=== PATIENT | female | born 1940 ===

== ENCOUNTER 2020-06-16 05:45 | Day surgery (SDC) | payer OTHER ==
[2020-06-16] MEDS ORDERED: AMOX1TAB5 PO (09:19)
== END 2020-06-16 10:25 | disposition home or self-care (01) ==
LOC: AMB-ENDOS 05:45
PROVIDERS: ATTEND Surgery
DX: K57.32 Diverticulitis of large intestine without perforation or abscess without bleeding (principal); K64.8 Other hemorrhoids; Z20.828 Contact with and (suspected) exposure to other viral communicable diseases